=== PATIENT | female | born 1955 | race Caucasian/White ===

== ENCOUNTER 2017-09-20 15:16 | Emergency (ER) | payer MEDICARE, MEDICAID ==
[~2017-09-20 15:16] MED LIST: AMLO5TAB22 PO; ATOR20TA PO; CARV6.252 PO; CLON.1 PO; CYMB30CA PO; DUONI NEB; FENT50DI TD; FIORIC PO; IBUP600T26 PO; LORTA5 PO; OMEP20TA PO; PERC5TAB12 PO; XANA0.5T PO
[2017-09-20 15:37] VITALS: BP 129/72; PULSE 87; RESP 24; TEMP 97.7; O2SAT 99
[2017-09-20 19:59] LABS: AUTOMATED NEUTROPHIL # 15.9 TH/MM3 (1.8-7.7); BASOPHIL # 0.1 TH/MM3 (0-0.2); BASOPHIL % 0.4 % (0.0-2.0); EOSINOPHIL # 0.3 TH/MM3 (0-0.4); EOSINOPHIL % 1.4 % (0.0-4.0); HEMATOCRIT 28.6 % (35.0-46.0); HEMOGLOBIN 8.9 GM/DL (11.6-15.3); LYMPH % 15.3 % (9.0-44.0); LYMPHOCYTE # 3.1 TH/MM3 (1.0-4.8); MEAN CELL VOLUME 70.5 FL (80.0-100.0); MEAN CORPUSCULAR HGB CONC 31.3 % (32.0-36.0); MEAN PLATELET VOLUME 8.3 FL (7.0-11.0); MONO % 4.8 % (0.0-8.0); NEUT % 78.1 % (16.0-70.0); PLATELET COUNT 566 TH/MM3 (150-450); RED BLOOD COUNT 4.06 MIL/MM3 (4.00-5.30); RED CELL DISTRIBUTION WIDTH 18.8 % (11.6-17.2); WHITE BLOOD COUNT 20.4 TH/MM3 (4.0-11.0)
[2017-09-20 20:18] LABS: BICARBONATE 21.6 MEQ/L (21.0-32.0); CALCIUM 9.3 MG/DL (8.5-10.1); CREATININE 2.26 MG/DL (0.50-1.00)
[2017-09-20] MEDS ORDERED: PROPARACAINE HCL 0.5% OPHT SOLN 15 ML BTL LEFT EYE ONE (22:00)
--- NOTE | 2017-09-20 22:10 | PD ---
HPI Chief Complaint: Skin Problem Time Seen by Provider: 21:45 Travel History International Travel<30 days: No Contact w/Intl Traveler<30days: No Traveled to known affect area: No History of Present Illness HPI 62-year-old female presents emergency department with a 2 day history of a painful rash and blurry vision to the left eye. Patient states that she is also had a headache with occasional nausea. Says her pain has increased significantly says that the rash is intensely painful. Says that both eyes have been swollen and tender to palpation. Says that she has also been feeling fatigued. Patient says she has a history of chickenpox but has never had shingles. States she has a history of hypertension, COPD, "stomach problems". Patient is unable to tell me the name of her primary care physician. Says that she has had multiple surgeries in her life and she has a "high pain tolerance". Patient denies alcohol use. States she smokes cigarettes daily. PFSH Past Medical History Anxiety: Yes Depression: Yes Heart Rhythm Problems: Yes Cardiovascular Problems: Yes High Cholesterol: Yes Diminished Hearing: No Fibromyalgia: Yes GERD: Yes Hypertension: Yes Musculoskeletal: Yes (L FOOT FRACTURE) Neurologic: Yes (CONCUSSION 08/2014; MIGRAINES) Psychiatric: Yes Immunizations Current: No Migraines: Yes Pancreatitis: Yes Menopausal: Yes Past Surgical History Abdominal Surgery: Yes (SEVERAL ABDOMEN SURGERIES) Appendectomy: Yes Hysterectomy: Yes Tonsillectomy: Yes Other Surgery: Yes (NECK SURGERY ) Social History Alcohol Use: No Tobacco Use: Yes (1PPD) Substance Use: No (DENIES) Allergies-Medications (Allergen,Severity, Reaction): Coded Allergies: amoxicillin (Unverified Allergy, Severe, VOMITING, 03/02/17) clavulanic acid (Unverified Allergy, Severe, VOMITING, 03/02/17) ofloxacin (Unverified Allergy, Severe, VOMITING, 03/02/17) ciprofloxacin (Unverified Allergy, Intermediate, vomiting, 03/02/17) morphine (Unverified Allergy, Intermediate, blisters, 03/02/17) pregabalin (Unverified Allergy, Intermediate, nausea, 03/02/17) Reported Meds & Prescriptions Reported Meds & Active Scripts Active Hydrocodone-Acetaminophen 5-325 mg Tab 1 Tab PO Q4H PRN Prednisone 20 Mg Tab 20 Mg PO BID 5 Days Acyclovir 400 Mg Tab 400 Mg PO 5 TIMES A DAY 5 Days Hydrocodone/Acetaminophen 5 mg/325 mg 1 Tab 1 Tab PO Q6H PRN Percocet 5-325 mg (Oxycodone/Acetaminophen) Oxycodone 5/325 Acetaminophen Tab 1- 2 Tab PO Q6H PRN Ibuprofen 600 Mg Tab 600 Mg PO TID PRN Reported Carvedilol 6.25 mg (Carvedilol) 6.25 Mg Tab 1 Tab PO EVERY OTHER DAY Fioricet Tab (Acetaminophen/Butalbital/Caffeine) 1 Tab 1 Tab PO Q4H PRN Atorvastatin 20 mg tab (Atorvastatin Calcium) 20 Mg Tab 1 Tab PO HS Fentanyl 50 Mcg/Hr patch (Fentanyl) 50 Mcg/Hr Dis 25 Mcg TD Q3D Omeprazole 20 mg (Omeprazole) 20 Mg Tab 40 Mg PO DAILY Xanax 0.5 mg (Alprazolam) Alprazolam 0.5 mg Tab 1 Tab PO BID Resp: Albuterol/Ipratropium 2.5 Mg/0.5 Mg (Albuterol/Ipratropium) 1 Amp Nebu 1 Amp NEB Q6H Catapres 0.1 mg (Clonidine HCl) 0.1 Mg Tab 1 Tab PO HS Cymbalta (Duloxetine HCl) 30 Mg Cap 60 Mg PO DAILY Amlodipine Besylate 5 mg (Amlodipine Besylate) 5 Mg Tab 5 Mg PO DAILY Review of Systems Except as stated in HPI: all other systems reviewed are Neg Physical Exam Narrative GENERAL: Well-developed, well-nourished, anxious SKIN: Focused skin assessment warm/dry. Left forehead-ulcers in the left forehead region, not crossing the midline, extending just beyond the hairline. macias's sign negative HEAD: Atraumatic. Normocephalic. EYES: Pupils equal and round. No scleral icterus. No injection or drainage. mild erythema and edema of left eyelid, negative fluorescein uptake, no dedritic lesions, Sidels sign negative, ENT: No nasal bleeding or discharge. Mucous membranes pink and moist. NECK: Trachea midline. No JVD. no lymphadenopathy CARDIOVASCULAR: Regular rate and rhythm. No murmur appreciated. RESPIRATORY: No accessory muscle use. Clear to auscultation. Breath sounds equal bilaterally. GASTROINTESTINAL: Abdomen soft, non-tender, nondistended. Hepatic and splenic margins not palpable. MUSCULOSKELETAL: No obvious deformities. No clubbing. No cyanosis. No edema. NEUROLOGICAL: Awake and alert. No obvious cranial nerve deficits. Motor grossly within normal limits. Normal speech. PSYCHIATRIC: Appropriate mood. Anxious, difficulty staying still, pacing the room upon reentering Data Data Last Documented VS Vital Signs Date Time Temp Pulse Resp B/P (MAP) Pulse Ox O2 Delivery O2 Flow Rate FiO2 09/20/17 15:37 97.7 87 24 129/72 (91) 99 Orders Orders Complete Blood Count With Diff (09/20/17 15:41) Basic Metabolic Panel (Bmp) (09/20/17 15:41) Proparacaine 0.5% Opth Soln (Alcaine 0.5 (09/20/17 22:00) Ondansetron Odt (Zofran Odt) (09/20/17 22:15) Acyclovir (Zovirax) (09/20/17 22:15) Acetamin-Hydrocod 325-5 Mg (Tucker 5-325 (09/20/17 22:45) Acetamin-Hydrocod 325-10 Mg (Tucker 10-32 (09/20/17 23:00) Potassium Chloride (Kcl) (09/20/17 23:15) Sodium Chlorid 0.9% 500 Ml Inj (Ns 500 M (09/20/17 23:15) Ed Discharge Order (09/20/17 23:15) Labs Laboratory Tests Test 09/20/17 18:36 White Blood Count 20.4 TH/MM3 Red Blood Count 4.06 MIL/MM3 Hemoglobin 8.9 GM/DL Hematocrit 28.6 % Mean Corpuscular Volume 70.5 FL Mean Corpuscular Hemoglobin 22.0 PG Mean Corpuscular Hemoglobin Concent 31.3 % Red Cell Distribution Width 18.8 % Platelet Count 566 TH/MM3 Mean Platelet Volume 8.3 FL Neutrophils (%) (Auto) 78.1 % Lymphocytes (%) (Auto) 15.3 % Monocytes (%) (Auto) 4.8 % Eosinophils (%) (Auto) 1.4 % Basophils (%) (Auto) 0.4 % Neutrophils # (Auto) 15.9 TH/MM3 Lymphocytes # (Auto) 3.1 TH/MM3 Monocytes # (Auto) 1.0 TH/MM3 Eosinophils # (Auto) 0.3 TH/MM3 Basophils # (Auto) 0.1 TH/MM3 CBC Comment DIFF FINAL Differential Comment Blood Urea Nitrogen 30 MG/DL Creatinine 2.26 MG/DL Random Glucose 87 MG/DL Calcium Level 9.3 MG/DL Sodium Level 129 MEQ/L Potassium Level 3.0 MEQ/L Chloride Level 94 MEQ/L Carbon Dioxide Level 21.6 MEQ/L Anion Gap 13 MEQ/L Estimat Glomerular Filtration Rate 22 ML/MIN MDM Medical Decision Making Medical Screen Exam Complete: Yes Emergency Medical Condition: Yes Differential Diagnosis Herpes zoster, cellulitis, contact dermatitis Narrative Course 62-year-old female presents emergency department with a 2 day history of a painful rash and blurry vision to the left eye. Patient states that she is also had a headache with occasional nausea. Says her pain has increased significantly says that the rash is intensely painful. Says that both eyes have been swollen and tender to palpation. Says that she has also been feeling fatigued. Patient says she has a history of chickenpox but has never had shingles. States she has a history of hypertension, COPD, "stomach problems". Patient is unable to tell me the name of her primary care physician. Says that she has had multiple surgeries in her life and she has a "high pain tolerance". Patient denies alcohol use. States she smokes cigarettes daily. Vital sign stable. Physical exam findings demonstrates an anxious 62-year-old female ulcerated lesions to the left forehead with some extension into the hairline. Tenderness palpation of the eyelid. CBC shows white blood cell count 20.4. Hemoglobin 8.9, hematocrit 28.6. Platelets 566. Mild hyponatremia, hypokalemia. Decreased renal function- unknown chronicity KCL 40meq administered. 500ccNS bolus for kidneys. acyclovir administered. hydrocodone 10-325mg administered for pain. Pt to be discharged with pain medication, acyclovir, and prednisone. Note that patient requested 10-325mg Rx however, because of kidney function, dehydration status, and pt fatigue, I did not feel this was safe. Pt left agitated but accepted her prescriptions. She understand she needs to follow up with her primary care physician and bale stacker for further evaluation. Diagnosis Primary Impression: Herpes zoster Qualified Codes: B02.8 - Zoster with other complications Referrals: [facility] Primary Care Physician Additional Instructions: Take all medications as prescribed. Follow-up with an bale stacker this week. If your symptoms persist or worsen return to the emergency department. Scripts Hydrocodone-Acetaminophen (Hydrocodone-Acetaminophen) 5-325 mg Tab 1 TAB PO Q4H Y for PAIN, #15 TAB 0 Refills Prov: Jermaine Davila MD 09/20/17 Prednisone (Prednisone) 20 Mg Tab 20 MG PO BID for 5 Days, #10 TAB 0 Refills Prov: Geneva Fair 09/20/17 Acyclovir (Acyclovir) 400 Mg Tab 400 MG PO 5 TIMES A DAY for Mgmt Viral Infection for 5 Days, TAB 0 Refills Prov: Geneva Fair 09/20/17 Disposition: 01 DISCHARGE HOME Condition: Stable Geneva Fair Sep 20, 2017 22:10
[2017-09-20] MEDS ORDERED: ONDANSETRON ODT 4 MG TAB PO ONE (22:15)
[2017-09-20] MEDS ORDERED: ACYCLOVIR 800 MG TAB PO ONE (22:15)
[2017-09-20] MEDS ORDERED: ACETAMINOPHEN/HYDROcodone 325 MG/5 MG TAB PO ONE (22:45)
[2017-09-20] MEDS ORDERED: ACETAMINOPHEN/HYDROcodone 325 MG/10 MG TAB PO ONE (23:00)
[2017-09-20] MEDS ORDERED: ACYC400T PO (23:13)
[2017-09-20] MEDS ORDERED: PRED20 PO (23:13)
[2017-09-20] MEDS ORDERED: HYDR-3516 PO (23:14)
[2017-09-20] MEDS ORDERED: POTASSIUM CHLORIDE 10 MEQ CONTROLLED RELEASE TAB PO ONE (23:15)
[2017-09-20] MEDS ORDERED: SODIUM CHLORID 0.9% 500 ML INJ 500 ML IV ONE (23:15)
== END 2017-09-20 23:38 | disposition home or self-care (01) ==
LOC: NEPC 15:16
DX: B02.8 Zoster with other complications (principal); H53.8 Other visual disturbances; I10 Essential (primary) hypertension; J44.9 Chronic obstructive pulmonary disease, unspecified; R51 Headache; E87.6 Hypokalemia; Z72.0 Tobacco use
CPT/HCPCS: 80048; 85025; 99283